=== PATIENT | female | born 1980 ===

== ENCOUNTER 2019-07-22 20:28 | Inpatient (IN) ==
[2019-07-22] MEDS ORDERED: PROMETHAZINE 25 MG/1 ML VIAL IM PRN (22:26)
[2019-07-22] MEDS ORDERED: SODIUM CHLORIDE 0.9% 1,000 ML IV PRN (22:26)
[2019-07-22] MEDS ORDERED: ONDANSETRON 4 MG/2 ML VIAL IV PRN (22:26)
[2019-07-22] MEDS ORDERED: MORPHINE 4 MG/1 ML VIAL IV PRN (22:26)
[2019-07-22] MEDS ORDERED: NICOTINE 21 MG/24 HR PATCH TRANSDERM PRN (22:26)
[2019-07-22] MEDS ORDERED: PANTOPRAZOLE INJ 200 MG in SODIUM CHLORIDE 0.9% 250 ML IV SCH (22:30)
[2019-07-22] MEDS: SODIUM CHLORIDE 0.9% 1,000 ML IV SCH (22:51)
[2019-07-22 22:57] LABS: Basophils % 0.3 % (0.0-0.8); Eosinophils % 0.2 % (0.00-10.9); Immature Granulocytes % 0.3 %; Immature Granulocytes Absolute 0.03 #; Lymphocytes # 2.7 10*3/uL (1.4-4.0); Lymphocytes % 27.6 % (21.3-54.2); Mean Corpuscular HGB Conc 29.5 GM/DL (32-36); Mean Platelet Volume 8.2 FL (9.6-12.0); Monocytes % 7.3 % (1.7-12.7); Neutrophils % 64.3 % (38.7-73.9); Platelet Count 412 T/CUMM (130-400); Red Blood Count 1.66 MC/CUMM (3.8-5.5); White Blood Count 9.8 T/CUMM (4-12)
[2019-07-22 23:02] LABS: Hemoglobin 4.3 GM/DL (12.0-16.0)
[2019-07-22 23:03] LABS: Hematocrit 14.6 VOL% (35.7-47.0)
[2019-07-22 23:21] LABS: Alanine Aminotransferase 14 U/L (13-56); Alkaline Phosphatase 55 U/L (45-117); Aspartate Amino Transferase 10 U/L (0-37); Bilirubin,Total < 0.39 MG/DL (0.2-1.0); Blood Urea Nitrogen 10 MG/DL (7-18); Calcium 7.8 MG/DL (8.5-10.1); Estimated Glom Filtration Rate 127 ML/MIN; Ferritin 1.8 ng/ml (8-252); Glucose 93 MG/DL (74-106); Osmolality,Calculated 279.3 MOS/KG (273-304); Total Protein 6.1 G/DL (6.4-8.3)
[2019-07-22 23:55] LABS: Sedimentation Rate-Westergren 45 MM/HR (0-20); Vitamin B12 376 PG/ML (211-911)
[2019-07-23 02:34] LABS: Anisocytosis 1+; Hypochromasia 1+; Ovalocytes 1+; Platelet Estimate Normal; Target Cells Few
[2019-07-23] MEDS: SODIUM CHLORIDE 0.9% 1,000 ML IV SCH ×3 (06:56→21:26)
[2019-07-23 08:30] LABS: Hematocrit 19.7 VOL% (35.7-47.0)
[2019-07-23 08:34] LABS: Hemoglobin 5.9 GM/DL (12.0-16.0)
[2019-07-23] MEDS ORDERED: SODIUM CHLORIDE 0.9% 1,000 ML IV PRN ×2 (08:52→08:55)
[2019-07-23 09:37] LABS: Hemoglobin A1 (Alkaline) 97.2 % (96.5-98.5); Hemoglobin A2 (Alkaline) 2.8 % (1.5-3.5)
[2019-07-23] MEDS: PANTOPRAZOLE 40 MG TABLET PO SCH ×2 (09:40→21:24)
[2019-07-23] MEDS: IRON SUCROSE 200 MG in SODIUM CHLORIDE 0.9% 100 ML IV SCH (09:40)
[2019-07-23] MEDS ORDERED: CALCIUM GLUCONATE 2,000 MG in SODIUM CHLORIDE 0.9% 100 ML IV ONE (11:00)
[2019-07-23] MEDS: ACETAMINOPHEN 325 MG TABLET PO PRN (14:30)
[2019-07-23 18:59] LABS: Hematocrit 29.3 VOL% (35.7-47.0)
[2019-07-23 19:04] LABS: Hemoglobin 9.4 GM/DL (12.0-16.0)
[2019-07-24 05:35] LABS: Basophils # 0.1 10*3/uL (0.0-0.2); Basophils % 0.8 % (0.0-0.8); Eosinophils # 0.1 10*3/uL (0.0-0.87); Eosinophils % 0.8 % (0.00-10.9); Hematocrit 27.6 VOL% (35.7-47.0); Hemoglobin 8.8 GM/DL (12.0-16.0); Immature Granulocytes % 0.5 %; Immature Granulocytes Absolute 0.04 #; Lymphocytes # 1.9 10*3/uL (1.4-4.0); Mean Corpuscular HGB Conc 31.9 GM/DL (32-36); Mean Corpuscular Volume 88.2 FL (87-102); Mean Platelet Volume 9.1 FL (9.6-12.0); Monocytes % 9.8 % (1.7-12.7); NRBC # 0.04 10*3/uL; Neutrophils % 64.1 % (38.7-73.9); Platelet Count 347 T/CUMM (130-400); Red Blood Count 3.13 MC/CUMM (3.8-5.5); Red Cell Distribution Width 14.6 % (9.3-17.3); White Blood Count 7.8 T/CUMM (4-12)
[2019-07-24 05:59] LABS: Calcium 7.7 MG/DL (8.5-10.1); Osmolality,Calculated 281.8 MOS/KG (273-304)
[2019-07-24] MEDS ORDERED: SODIUM PHOSPHATE ENEMA 133 ML BOTTLE RECTAL ONE (06:00)
[2019-07-24] MEDS ORDERED: SODIUM CHLORIDE 0.9% 1,000 ML IV PRN (07:35)
[2019-07-24] MEDS ORDERED: LACTATED RINGERS 1,000 ML IV SCH (08:00)
[2019-07-24] MEDS ORDERED: LIDOCAINE 2% 5 ML VIAL ONE (10:00)
[2019-07-24] MEDS ORDERED: PROPOFOL 200 MG/20 ML VIAL IV ONE (10:00)
[2019-07-24] MEDS: PANTOPRAZOLE 40 MG TABLET PO SCH ×2 (11:22→20:58)
[2019-07-24] MEDS: IRON SUCROSE 200 MG in SODIUM CHLORIDE 0.9% 100 ML IV SCH (11:22)
[2019-07-24] MEDS ORDERED: BISACODYL 5 MG TABLET PO ONE (12:00)
[2019-07-24] MEDS ORDERED: POLYETHYLENE GLYCOL POWDER 255 GM BOTTLE PO ONE (13:00)
[2019-07-24] MEDS: SODIUM CHLORIDE 0.9% 1,000 ML IV SCH (14:03)
[2019-07-24] MEDS: ACETAMINOPHEN 325 MG TABLET PO PRN ×2 (14:27→23:49)
[2019-07-24] MEDS ORDERED: MAGNESIUM CITRATE 300 ML BOTTLE PO ONE (21:00)
[2019-07-25 05:22] LABS: Basophils # 0.1 10*3/uL (0.0-0.2); Basophils % 0.8 % (0.0-0.8); Eosinophils # 0.1 10*3/uL (0.0-0.87); Eosinophils % 0.9 % (0.00-10.9); Hematocrit 32.6 VOL% (35.7-47.0); Hemoglobin 10.4 GM/DL (12.0-16.0); Immature Granulocytes % 0.7 %; Immature Granulocytes Absolute 0.07 #; Lymphocytes # 2.1 10*3/uL (1.4-4.0); Lymphocytes % 21.5 % (21.3-54.2); Mean Corpuscular HGB Conc 31.9 GM/DL (32-36); Mean Corpuscular Volume 88.3 FL (87-102); Mean Platelet Volume 9.1 FL (9.6-12.0); Monocytes % 9.4 % (1.7-12.7); NRBC # 0.07 10*3/uL; Neutrophils % 66.7 % (38.7-73.9); Platelet Count 337 T/CUMM (130-400); Red Blood Count 3.69 MC/CUMM (3.8-5.5); White Blood Count 9.9 T/CUMM (4-12)
[2019-07-25 05:28] LABS: PT Patient Result 11.2 SECS (9.6-12.2)
[2019-07-25] MEDS ORDERED: LACTATED RINGERS 1,000 ML IV SCH (08:00)
[2019-07-25] MEDS ORDERED: PROPOFOL 200 MG/20 ML VIAL IV ONE (10:00)
[2019-07-25] MEDS ORDERED: LIDOCAINE 2% 5 ML VIAL ONE (10:00)
[2019-07-25] MEDS: IRON SUCROSE 200 MG in SODIUM CHLORIDE 0.9% 100 ML IV SCH (11:00)
[2019-07-25] MEDS: PANTOPRAZOLE 40 MG TABLET PO SCH ×3 (11:02→20:51)
[2019-07-25] MEDS: ACETAMINOPHEN 325 MG TABLET PO PRN (19:30)
[2019-07-26 05:27] LABS: Basophils # 0.1 10*3/uL (0.0-0.2); Eosinophils # 0.1 10*3/uL (0.0-0.87); Eosinophils % 1.6 % (0.00-10.9); Hematocrit 32.3 VOL% (35.7-47.0); Hemoglobin 10.3 GM/DL (12.0-16.0); Immature Granulocytes % 0.4 %; Immature Granulocytes Absolute 0.04 #; Lymphocytes # 1.9 10*3/uL (1.4-4.0); Lymphocytes % 21.7 % (21.3-54.2); Mean Corpuscular HGB Conc 31.9 GM/DL (32-36); Monocytes % 10.4 % (1.7-12.7); NRBC # 0.02 10*3/uL; Neutrophils % 64.9 % (38.7-73.9); Platelet Count 316 T/CUMM (130-400); Red Blood Count 3.63 MC/CUMM (3.8-5.5); White Blood Count 8.9 T/CUMM (4-12)
[2019-07-26] MEDS: IRON SUCROSE 200 MG in SODIUM CHLORIDE 0.9% 100 ML IV SCH (09:00)
[2019-07-26] MEDS: PANTOPRAZOLE 40 MG TABLET PO SCH (09:12)
[2019-07-26 16:35] VITALS: BP 121/71
== END 2019-07-26 16:44 | disposition home or self-care (01) | DRG 378 ==
LOC: SUATTDRO 21:38 → N.CC 21:38 → N.3E 07-23 18:59
PROVIDERS: ADMIT Internal Medicine; ATTEND Family Medicine